=== PATIENT | male | born 2005 | race Caucasian/White ===

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

== ENCOUNTER 2024-01-18 19:44 | Emergency (ER) | payer BC, SELFPAY ==
[2024-01-18 19:46] VITALS: BP 139/79; PULSE 64; RESP 18; TEMP 37; O2SAT 99; BMI 30.7
--- NOTE | 2024-01-18 20:21 | ED_ITS ---
Discharge Plan Disposition Patient Disposition: Home, Self-Care Condition: Good Prescriptions Prescriptions: No Action cephalexin 500 mg capsule 500 mg PO QID 7 Days Qty: 28 0RF doxycycline hyclate 100 mg capsule 100 mg PO BID 7 Days Qty: 14 0RF mupirocin 2 % ointment 1 applic topical TID Qty: 22 0RF Rx Instructions: apply to skin around right great toenail methylprednisolone [Medrol (Zane)] 4 mg tablets,dose pack See Rx Instructions .Route .COMPLEX 6 Days Qty: 21 0RF Rx Instructions: taper pack; amoxicillin-pot clavulanate 875-125 mg Tablet 1 tab PO Q12H Qty: 20 0RF guaifenesin [Mucinex] 600 mg tablet extended release 12hr 1,200 mg PO BID PRN (Reason: cough) Qty: 20 0RF Referrals Follow up/Referrals: Teri Mansfield PA [Primary Care Provider] - See instructions Activity Restrictions/Add. Instructions Additional Instructions/Restrictions: You were evaluated in the emergency department today. Please keep your wound clean and dry. Do not submerge under any water. Try and keep it covered and protected. Allow the Steri-Strips and glue to fall off on their own. Do not remove them prematurely. Follow-up with your primary care provider for wound recheck. Return to the emergency department for new or worsening symptoms. Clinical Impressions Clinical Impression: Laceration of right upper arm Instructions Patient Instructions: DI for Laceration Repair Print Language Print Language: Pashto Discharge ED Provider: Roseann Neville General Adult HPI General Chief complaint: Wound/Laceration Stated complaint: AO 01/18/24 5425 laceration right arm Time Seen by Provider: 01/18/24 19:47 Mode of Arrival: Ambulatory Source of Information: Patient Limitations: No Limitations Description of Symptoms (Recalled from ER Triage Doc. by RN): Patient presents to ED with small lac to the back of his right arm. Reports he cut it on the sutton of a lawn motor saman. 3 hours ago. Patient rates pain 4/10. History of Present Illness HPI narrative: This patient is a 18-year-old male who denies significant past medical history presenting to the emergency department for a laceration of the back of his right arm. He states that he bumped it on the top of the lawnmower. No other concerns or complaints. No numbness or tingling. His last tetanus shot was within the last 3 years. Related Data Previous Rx's ?Medication ?Instructions ?Recorded mupirocin 2 % topical ointment 1 applic topical TID #22 grams 01/22/23 cephalexin 500 mg capsule 500 mg PO QID 7 days #28 caps 02/13/23 doxycycline hyclate 100 mg capsule 100 mg PO BID 7 days #14 caps 02/13/23 amoxicillin 875 mg-potassium 1 tab PO Q12H #20 tabs 05/08/23 clavulanate 125 mg tablet guaifenesin 600 mg tablet, 1,200 mg (2 x 600 mg) PO BID PRN 05/08/23 extended release 12 hr (Mucinex) cough #20 tabs methylprednisolone 4 mg tablets in See Rx Instructions .Route 05/08/23 a dose pack (Medrol (Zane)) .COMPLEX 6 days #21 tabs Allergies Allergy/AdvReac Type Severity Reaction Status Date / Time No Known Allergies Allergy Verified 02/16/23 09:04 [facility] Disclaimer: The information contained in this section may have been updated after the patient was seen, as this information can be updated by other users. Surgical History History of tonsillectomy and adenoidectomy Social History Smoking Status: Never smoker alcohol intake: never substance use type: denies use current occupational status: student Travel in the last 8 weeks: None household members: family housing: house ROS Obtained: Yes All systems reviewed & no additional complaints except as documented Physical Exam General General appearance: alert and in no apparent distress Head Head exam: atraumatic and normocephalic Eye Eye exam: Present normal appearance, PERRL and EOMI ENT ENT exam: Present normal exam, normal oropharynx, mucous membranes moist and normal external ear exam Neck Neck exam: Present normal inspection, full ROM and trachea midline; Absent tenderness Chest Chest inspection: Present normal inspection and symmetric chest wall rise; Absent tenderness Respiratory Respiratory exam: Present normal lung sounds bilaterally; Absent respiratory distress, wheezes, stridor or accessory muscle use Cardiovascular Cardiovascular exam: Present regular rate and normal rhythm Abdominal Exam Abdominal exam: Present soft; Absent distention, tenderness or guarding Extremities Exam Extremities exam: Present normal inspection, full ROM and normal capillary refill; Absent tenderness or edema Expanded Upper Extremity Exam Right: Comment: Very superficial 1.5 cm laceration to the posterior aspect of the right upper arm just above the elbow. Wound is hemostatic. no contamination. Back Exam Back exam: Present normal inspection and full ROM; Absent tenderness Neurological Exam Neurological exam: Present alert, oriented X3, CN II-XII intact and normal gait; Absent motor sensory deficit Psychiatric Psychiatric exam: Present normal affect and normal mood Skin Skin exam: Present warm and dry Medical Decision Making Medical Records Medical records reviewed: Yes I reviewed the patient's medical records. Tom Inquiry Pt receiving controlled substance: No Vital Signs: 01/18/24 19:46 01/18/24 20:59 Temperature 98.6 F 98.6 F Temperature Source Oral Oral Pulse Rate 64 Pulse Rate [Right Radial] 64 Respiratory Rate 18 18 Blood Pressure 130/66 Blood Pressure [Right Arm] 139/79 Blood Pressure Mean [Right Arm] 99 Blood Pressure Source Automatic Cuff Blood Pressure Source [Right Arm] Automatic Cuff Blood Pressure Position [Right Arm] Sitting 02 Sat by Pulse Oximetry 99 Oxygen Delivery Method Room Air Room Air Lab Data Lab results reviewed: Yes I reviewed the patient's lab results. Medical Decision Narrative: In summary, this patient is a 18-year-old male presenting to the Emergency Department for evaluation of aspiration to the right arm. Differential diagnoses considered include but are not limited to laceration, abrasion, foreign body. Ruling out the most morbid conditions drove assessment. On exam, the patient is very well-appearing. Laceration is very superficial and is clean. Wound was cleaned thoroughly. After shared decision-making with the patient, he elects for Steri-Strip and Dermabond as opposed to sutures. He is already up-to-date on tetanus. Laceration was cleaned, it was closed with Steri-Strips and Dermabond. At this time, I feel that he is appropriate for discharge without labs or imaging with instructions for supportive management and wound care. Strict return precautions were given Procedures Risk/Benefits of Procedure(s) Were Explained: Yes Laceration Laceration 1: Site: upper extremity Side (If applicable): right Size (cm): 1.5 Description: linear Depth: simple, single layer Pre-repair: wound explored, irrigated extensively and deep structures intact Skin layer closed with: Dermabond Critical Care Critical Care Time Critical Care Time: No
[2024-01-18 20:59] VITALS: BP 130/66; PULSE 64; RESP 18; TEMP 37; O2SAT 98
== END 2024-01-18 21:00 | disposition home or self-care (01) ==
PROVIDERS: Emergency Provider Emergency Medicine; PCP Physician Assistant
DX: S41.111A Laceration without foreign body of right upper arm, initial encounter (principal); W28.XXXA Contact with powered lawn mower, initial encounter
CPT/HCPCS: 12001; 99282